=== PATIENT | female | born 1980 ===

== ENCOUNTER 2024-03-05 07:22 | Day surgery (SDC) | payer OTHER ==
[~2024-03-05] VITALS: Ht 165.1 cm; Wt 69.9 kg
[2024-03-05 09:14] LABS: HCG,QUAL RESULT NEGATIVE (NEGATIVE)
[2024-03-05] MEDS ORDERED: MEPERIDINE 100 MG INJ. 100 MG/ML VIAL ONE ×2 (10:04→10:08)
[2024-03-05] MEDS ORDERED: MIDAZOLAM HCL 5 MG/5 ML VIAL ONE (10:05)
[2024-03-05] MEDS ORDERED: fentaNYL CITRATE/PF 100 MCG/2 ML AMP ONE (10:12)
[2024-03-05 10:50] VITALS: O2SAT 100
[2024-03-05 17:46] VITALS: BP_SYST 102; PULSE 61; RESP 16
== END 2024-03-05 11:55 | disposition home or self-care (01) ==
LOC: SDS 07:22 → SMU 07:23 → SDS 11:55
PROVIDERS: ATTEND Student in an Organized Health Care Education/Training Program
DX: Z12.11 Encounter for screening for malignant neoplasm of colon (principal); D12.3 Benign neoplasm of transverse colon; K21.9 Gastro-esophageal reflux disease without esophagitis; K64.4 Residual hemorrhoidal skin tags; K64.8 Other hemorrhoids; Z79.899 Other long term (current) drug therapy
CPT/HCPCS: 45380; 99152; 84703; 88305; G0378; J2250; J3010; J2175